=== PATIENT | female | born 1945 | race Two or more races ===

== ENCOUNTER 2022-08-16 11:47 | Emergency (ER) | payer OTHER ==
[~2022-08-16] VITALS: Ht 160 cm; Wt 74.8 kg
[2022-08-16] MEDS ORDERED: LEVOTHYROXINE25 MC1 PO (12:22)
[2022-08-16] MEDS ORDERED: BUPROPION HCL75 MG PO (12:22)
[2022-08-16] MEDS ORDERED: ATORVASTATIN CA20 MG PO (12:22)
[2022-08-16] MEDS ORDERED: METFORMIN HCL500 M4 PO (12:22)
[2022-08-16] MEDS ORDERED: ENALAPRIL MALEA10 MG PO (12:23)
== END 2022-08-16 16:55 | disposition home or self-care (01) ==
LOC: ER 11:47
DX: K29.70 Gastritis, unspecified, without bleeding (principal)